=== PATIENT | male | born 1930 | race Caucasian/White ===

== ENCOUNTER 2017-11-07 14:02 | Emergency (ER) | payer MEDICARE ==
[2017-11-07 14:46] LABS: ALT (SGPT) 30 U/L (8-55); AST (SGOT) 80 U/L (5-34); Albumin 3.3 g/dL (3.4-4.8); Alkaline Phosphatase 106 U/L (40-150); Anion Gap 17 mmol/L (10-20); BUN (Urea Nitrogen) 19 mg/dL (8.4-25.7); Bilirubin, Total 1.6 mg/dL (0.2-1.2); Calc. Creatinine Clearance 0 mL/min (70-130); Carbon Dioxide 23 mmol/L (23-31); Chloride 100 mmol/L (98-107); Estimated GFR-MDRD 73; Globulin 4.3 g/dL (2.4-3.5); Glucose 170 mg/dL (83-110); Potassium 3.9 mmol/L (3.5-5.1); Protein, Total 7.6 g/dL (5.8-8.1); Sodium 136 mmol/L (136-145)
[2017-11-07] MEDS ORDERED: cefTRIAXone\\ROCEPHIN 1 GM VIAL ONE ×2 (14:48→14:53)
[2017-11-07 14:49] LABS: CKMB 2.3 ng/mL (0-6.6); Troponin I 0.071 ng/mL (< 0.028)
[2017-11-07] MEDS ORDERED: Sodium Chloride 0.9% 100 ML ONE (14:53)
[2017-11-07 14:55] LABS: Hemoglobin 11.4 g/dL (14.0-18.0); Mean Corpuscular HGB CONC 33.7 g/dL (32.0-36.0); Mean Corpuscular Hemoglobin 29.4 pg (27.0-31.0); Mean Corpuscular Volume 87.3 fL (80.0-94.0); Mean Platelet Volume 6.1 fL (7.4-10.4); Platelet Count 459 thou/uL (130-400); RBC Distribution Width 15.3 % (11.5-14.5); Red Blood Cell (RBC) Count 3.87 mill/uL (4.70-6.10); White Blood Cell (WBC) Count 22.5 thou/uL (4.8-10.8)
[2017-11-07 14:58] LABS: Band 1 % (5-11); Lymphocytes 10 % (21-51); MDiff Complete? YES; Monocytes 3 % (0-10); Neutrophil 85 % (42-75); Reactive Lymphocytes 1 % (0-10)
[2017-11-07 14:59] LABS: Manual Diff?? NO
[2017-11-07] MEDS ORDERED: Furosemide 40 MG/4 ML VIAL ONE (15:55)
--- NOTE | 2017-11-07 16:42 | CT ---
CT ANGIO OF THE CHEST WITH CONTRAST 11/07/17 Comparison is made with a chest film done earlier as well as an older chest film from 2009. The chest study shows interval enlargement of the heart and findings suggestive of congestive heart failure. Today's exam, I had axial slices acquired after giving a bolus of IV contrast. oblique coronal reform ations were done afterwards through the pulmonary arteries. There is excellent opacification of the pulmonary arteries with no filling defects to suggest pulmona ry embolism. The aorta shows no aneurysm or dissection. The heart is enlarged but there is no signifi cant pericardial fluid. I cannot assess the presence or absence of coronary artery calcifications. The major finding on the study are large pleural effusions bilaterally, greater on the left than the right. This is causing some compressive atelectasis of the lower lobes. Whether or not there is concu rrent infiltrate, cannot be determined. For the visible portions of lung elsewhere, no masses were ap preciated. Smaller masses could be obscured on this study. A few slices into the upper abdomen showed no gross hepatic abnormality. IMPRESSION: Findings most consistent with CHF. No evidence for pulmonary embolism. POS: HOME
--- NOTE | 2017-11-07 17:27 | RAD ---
PORTABLE CHEST: 11/07/17 Comparison is made with a 02/15/09 study. Today's study shows cardiomegaly, bilateral pleural effusions, and vascular congestion. The findings are consistent with congestive heart failure. The effusion on the left is greater than that on the ri ght. Dense calcification of the aortic arch and great vessels are noted. Some degenerative changes ar e seen in the AC joints. IMPRESSION: CHF. POS: HOME
== END 2017-11-07 16:28 | disposition short-term general hospital (02) ==
LOC: BURERS 14:02
DX: J18.9 Pneumonia, unspecified organism (principal); I50.9 Heart failure, unspecified; I48.91 Unspecified atrial fibrillation; F17.210 Nicotine dependence, cigarettes, uncomplicated
CPT/HCPCS: 36415; 71045; 71275; 80053; 82553; 83605; 83880; 84484; 85025; 85379; 87040; 87149; 93005; 96365; 96375; J0696; J1940; J7050